=== PATIENT | male | born 1990 | race Caucasian/White ===

== ENCOUNTER 2023-09-03 17:06 | Emergency (ER) | payer SELFPAY | END 2023-09-03 18:26 | disposition left against medical advice (07) | LOC: DL.ED 17:06 | DX: Z53.21 Procedure and treatment not carried out due to patient leaving prior to being seen by health care provider (principal) ==

== ENCOUNTER 2023-11-10 18:47 | Emergency (ER) | payer OTHER | END 2023-11-10 19:53 | disposition home or self-care (01) | LOC: DL.ED 18:47 | DX: T50.901A Poisoning by unspecified drugs, medicaments and biological substances, accidental (unintentional), initial encounter (principal); F43.0 Acute stress reaction | CPT/HCPCS: 99283; 99284 ==